=== PATIENT | female | born 1985 | race Caucasian/White ===

== ENCOUNTER 2016-12-10 08:26 | Emergency (ER) | payer BC ==
[~2016-12-10] VITALS: Ht 167.6 cm; Wt 66.8 kg
[~2016-12-10 08:26] MED LIST: BIRTH CONTROL PO; ONDA4TAB8 PO
[2016-12-10] MEDS ORDERED: ONDANSETRON 2 MG/ML (Z0FRAN) 2 ML VIAL IV ONE (08:45)
[2016-12-10 08:57] LABS: MEAN CORPUSCULAR HGB CONC 35.3 g/dL (31.0-37.0); MEAN CORPUSCULAR VOLUME 91 FL (80-100); MEAN PLATELET VOLUME 10.6 FL (6.0-9.5); PLATELET COUNT 158 10^3uL (150-450); WHITE BLOOD COUNT 9.24 10^3uL (4.0-11.0)
[2016-12-10 09:07] LABS: ALBUMIN 4.5 g/dL (3.4-5.0); ANION GAP 16.6 MEQ/L (3-15); CALCULATED IONIZED CALCIUM 4.1 mg/dL (3.8-4.6); TOTAL PROTEIN 7.5 g/dL (6.4-8.5)
[2016-12-10 09:12] LABS: MEAN CORPUSCULAR HEMOGLOBIN 32.3 PG (26.0-34.0)
[2016-12-10 09:23] LABS: BAND NEUTROPHILS % 1 % (0-6); EOSINOPHILS % 0 % (0-4); LYMPHOCYTES # 0.4 #; MONOCYTES # 0.2 #; MONOCYTES % 2 % (3-11); SEGMENTED NEUTROPHILS % 93 % (51-67); TOTAL CELLS COUNTED 100
[2016-12-10 09:24] LABS: RBC MORPH NORMAL (NORMAL)
[2016-12-10] MEDS ORDERED: KETOROLAC 30 MG/ML (TORADOL) 1 ML VIAL IV ONE (10:05)
[2016-12-10 10:15] VITALS: BP 137/76
== END 2016-12-10 10:15 | disposition home or self-care (01) ==
LOC: EDUNIT# 08:26 → ED 08:29
DX: R11.2 Nausea with vomiting, unspecified (principal); R19.7 Diarrhea, unspecified
CPT/HCPCS: 36415; 80053; 83690; 85025; 96361; 96374; 96375; 99284; J1885; J2405; J7030; 99282

== ENCOUNTER → 2017-02-26 | Outpatient (CLI) | payer BC ==
[2017-02-26 19:36] VITALS: BP 115/78
--- NOTE | 2017-02-26 19:36 | Urgent Care T Sheet Gen (E) ---
Intake General Temperature (Fahrenheit): 99.1 Pulse: 72 Blood Pressure Systolic: 115 Blood Pressure Diastolic: 78 Respirations: 18 SPO2: 99 History of Present Illness Initial Comments patient presents with a possible tampon stuck inside her. States she is currently on her period. She doesn't remember if she placed a tampon this AM or if it fell out during the day and she didn't realize it. She is bleeding, not a heavy flow but bleeding, so she is confused on whether or not there is one in place. She is requesting an evaluation to see if one is present or not. No pelvic pain or irritation. Allergies: Coded Allergies: Cefprozil (Unverified Allergy, Mild, Rash, 08/19/14) cefuroxime (Unverified Allergy, Mild, Rash, 08/19/14) sulfamethoxazole (Unverified Allergy, Mild, Rash, 08/19/14) trimethoprim (Unverified Allergy, Mild, Rash, 08/19/14) Home Meds Reported Medications [ Control] No Conflict CheckUnknown Dose PO HS 08/19/14 Respiratory Constitutional Symptoms: No syptoms reported Other possible tampon stuck inside her All Other Systems Reviewed Remaining Systems: All other systems reviewed with negative findings Past Gjtiyiq-Bxnvkh-Ttuwjf Hx Patient's Social History Alcohol Use: Denies Use Smoking Status: Never smoker Recent foreign travel: No Surgeries/Hospitalizations Hospitalization/Surgery Hx: NO SURGERYS Respiratory Respiratory History: None Cardiovascular Cardiovascular History: None Gastrointestinal GI/Endocrine History: GERD Diabetes Diabetes: No HEENT Impaired Vision: None Hearing Impaired: None Psychosocial Behavior Disorders: None Physical Exam Physical Exam General Appearance: WD/WN No apparent distress Comment Speculum pelvic exam reveals bleeding however I see no tampon or foreign object. Manual pelvic exam also reveals no foreign object. Her cervix was palpated and wasn't tender. No generalized tenderness within the pelvic region. Departure Urgent Care Impression Impression: Primary Impression: Menstrual pain Departure Disposition: 01 HOME OR SELF-CARE Condition: Stable Referrals: LAURA VERONICA MD (PCP) Additional Instructions: Reassured the patient that I see nor feel any tampon inside her. If she starts to notice pelvic pain, worsening bleeding, purulent drainage, fever, etc, she is to present immediately to the ER. patient understands DC instructions. All questions were answered. End of report . TAMMY WHITEHEAD Feb 26, 2017 19:36
== END ==
LOC: MHUC 19:02
PROVIDERS: ATTEND Physician Assistant
DX: N94.6 Dysmenorrhea, unspecified (principal)
CPT/HCPCS: 99213

== ENCOUNTER 2017-04-03 18:53 | Emergency (ER) | payer BC ==
[~2017-04-03] VITALS: Ht 165.1 cm; Wt 57.7 kg
--- OUTSIDE RECORDS SUMMARY | 2017-04-03 18:58 | XMS REPORT | Continuity of Care Document ---
Author Author [email or web address] Organization [facility] Address Unknown Phone Unavailable Allergies Active Description Code Type Severity Reaction Onset Reported/Identified Relationship to Patient Clinical Status Yes cefprozil [id number] Drug Allergy Mild Rash 08/19/2014 Yes cefuroxime [id number] Drug Allergy Mild Rash 08/19/2014 Yes sulfamethoxazole [id number] Drug Allergy Mild Rash 08/19/2014 Yes trimethoprim [id number] Drug Allergy Mild Rash 08/19/2014 Medications Problems Date Dx Coded Attending Type Code Diagnosis Diagnosed By 08/20/2014 AYESHA AGUILERA, WALT Clement Ot 787.03 VOMITING ALONE 05/22/2015 BREANNE VILLATORO MD, LAURA Meza Ot 719.45 12/10/2016 BREANNE VILLATORO MD, LAURA Meza Ot 719.45 JOINT PAIN-PELVIS 12/10/2016 ROSE MONREAL MD Ot R11.2 NAUSEA WITH VOMITING, UNSPECIFIED 12/10/2016 ROSE MONREAL MD Ot R19.7 DIARRHEA, UNSPECIFIED 12/13/2016 ROSE MONREAL MD Ot R11.2 NAUSEA WITH VOMITING, UNSPECIFIED 12/13/2016 ROSE MONREAL MD Ot R19.7 DIARRHEA, UNSPECIFIED 02/28/2017 TAMMY ANGELA Ot N94.6 DYSMENORRHEA, UNSPECIFIED 03/12/2017 TAMMY ANGELA Ot N94.6 DYSMENORRHEA, UNSPECIFIED Procedures Results Test Result Range Comprehensive metabolic panel - 12/10/16 08:50 Sodium measurement 99 70-110 CARBON DIOXIDE 24 22-29 Serum or plasma anion gap 16.6 3-15 BLOOD UREA NITROGEN 10 7-18 CREATININE SERUM 0.75 0.6-1.2 Brucella species antibody panel (IgG, IgM) 13 10-20 Estimated glomerular filtration rate (GFR) 109.1 Estimated glomerular filtration rate (GFR) non- 90.1 OSMOLALITY,CALCULATED 266 280-300 CALCIUM 9.6 8.8-10.8 Calculated ionized calcium measurement 4.1 3.8-4.6 BILIRUBIN,TOTAL 1.4 0.1-1.0 Serum or plasma alkaline phosphatase measurement 94 38-126 ASPARTATE AMINO TRANSFERASE 23 15-37 ALANINE AMINOTRANSFERASE 35 30-65 Serum or plasma total protein measurement 7.5 6.4-8.5 Serum or plasma albumin measurement 4.5 3.4-5.0 Serum or plasma albumin/globulin mass ratio 1.500 1.1-1.8 Lipase measurement - 12/10/16 08:50 Lipase measurement 65 23-300 Complete blood count (CBC) with automated white blood cell (WBC) differential - 12/10/16 08:50 Blood automated leukocyte count 9.24 4.0 -11.0 Erythrocytes 4.55 4.00-5.00 12.0-16.0;g/dL 14.7 12.0-15.5 Hematocrit 41.60 35.00-45.00 Automated erythrocyte mean corpuscular volume 91 80-100 Mean corpuscular hemoglobin (MCH) determination 32.3 26.0-34.0 Automated erythrocyte mean corpuscular hemoglobin concentration measurement ( mass/volume) 35.3 31.0-37.0 Erythrocyte distribution width 11.5 11.8 -15.6 Automated blood platelet count 158 150- 450 Automated blood platelet mean volume measurement 10.6 6.0-9.5 Complete blood count, platelets with manual differential - 12/10/16 08:50 Total cell count 100 Blood segmented neutrophils percentage 93 51-67 Blood band neutrophil count as percentage of total leukocytes 1 0-6 LYMPHOCYTES % 4 20-46 Automated monocyte percentage 2 3-11 Eosinophil count auto 0 0-4 Basophils 0 0-2 Manual blood metamyelocytes/100 leukocytes 0 0-1 NEUTROPHILS(SEG) 8.6 NEUTROPHILS # BANDS 0.1 Blood lymphocytes manual count (number/volume) 0.4 Automated blood monocyte count 0.2 Blood absolute eosinophil count 0.0 Basophils 0.0 Erythrocyte morphology assessment NORMAL NORMAL Encounters ACCT No. Visit Date/Time Discharge Status Pt. Type Provider Facility Loc./Unit Complaint [id number] 11/04/2014 18:24:55 11/04/2014 23: 59:59 CLS Outpatient Steve Silva [id number] 05/02/2014 14:55:55 05/02/2014 23: 59:59 CLS Outpatient Danie Mustafa [id number] 03/01/2014 15:30:18 03/01/2014 23: 59:59 CLS Outpatient Danie Mustafa [id number] 02/10/2014 10:04:25 02/10/2014 23: 59:59 CLS Outpatient Danie Mustafa [id number] 02/03/2014 15:23:08 02/03/2014 23: 59:59 CLS Outpatient Matt Garcia [id number] 09/06/2013 09:18:05 09/06/2013 23: 59:59 CLS Outpatient Danie Mustafa [id number] 07/20/2013 17:03:01 07/20/2013 23: 59:59 CLS Outpatient Danie Mustafa
--- OUTSIDE RECORDS SUMMARY | 2017-04-03 18:58 | XMS REPORT | Continuity of Care Document ---
Author Author [facility] Organization [facility] Address Unknown Phone Unavailable Allergies Active Description Code Type Severity Reaction Onset Reported/Identified Relationship to Patient Clinical Status Yes cefprozil [id number] Drug Allergy Mild Rash 08/19/2014 Yes cefuroxime [id number] Drug Allergy Mild Rash 08/19/2014 Yes sulfamethoxazole [id number] Drug Allergy Mild Rash 08/19/2014 Yes trimethoprim [id number] Drug Allergy Mild Rash 08/19/2014 Medications Problems [...] Status Pt. Type Provider Facility Loc./Unit Complaint [id number] 11/04/2014 18:24:55 11/04/2014 23: 59:59 CLS Outpatient Steve Silva [id number] 05/02/2014 14:55:55 05/02/2014 23: 59:59 CLS Outpatient Danie Mustafa [id number] 03/01/2014 15:30:18 03/01/2014 23: 59:59 CLS Outpatient Danie Mustafa [id number] 02/10/2014 10:04:25 02/10/2014 23: 59:59 CLS Outpatient Danie Mustafa [id number] 02/03/2014 15:23:08 02/03/2014 23: 59:59 CLS Outpatient Matt Garcia [id number] 09/06/2013 09:18:05 09/06/2013 23: 59:59 CLS Outpatient Danie Mustafa [id number] 07/20/2013 17:03:01 07/20/2013 23: 59:59 CLS Outpatient Danie Mustafa
[2017-04-03] MEDS ORDERED: PROMETHAZINE HCL INJ 25 MG in SODIUM CHLORIDE 25 ML IV ONE (19:10)
[2017-04-03] MEDS ORDERED: SODIUM CHLORIDE FLUSH 3 ML SYR IV ONE (19:10)
[2017-04-03] MEDS ORDERED: SODIUM CHLORIDE FLUSH 10 ML SYR IV PRN (19:10)
[2017-04-03 19:34] LABS: MEAN CORPUSCULAR VOLUME 93 FL (80-100); MEAN PLATELET VOLUME 10.5 FL (6.0-9.5); PLATELET COUNT 195 10^3uL (150-450); WHITE BLOOD COUNT 17.88 10^3uL (4.0-11.0)
[2017-04-03 19:41] LABS: MEAN CORPUSCULAR HEMOGLOBIN 33.2 PG (26.0-34.0); MEAN CORPUSCULAR HGB CONC 35.6 g/dL (31.0-37.0)
[2017-04-03 19:42] LABS: BAND NEUTROPHILS % 6 % (0-6); EOSINOPHILS % 0 % (0-4); LYMPHOCYTES # 0.9 #; MONOCYTES # 0.7 #; MONOCYTES % 4 % (3-11); RBC MORPH NORMAL (NORMAL); SEGMENTED NEUTROPHILS % 85 % (51-67); TOTAL CELLS COUNTED 100
[2017-04-03] MEDS ORDERED: LORazepam 2 MG/ML (ATIVAN) 1 ML VIAL ONE (19:43)
[2017-04-03 19:45] LABS: ALBUMIN 4.9 g/dL (3.4-5.0); TOTAL PROTEIN 8.3 g/dL (6.4-8.5)
[2017-04-03] MEDS ORDERED: LORazepam 2 MG/ML (ATIVAN) 1 ML VIAL IV ONE (19:45)
[2017-04-03] MEDS ORDERED: TRIAMCINOLONE CREAM (19:46)
[2017-04-03] MEDS ORDERED: NORG1TAB14 PO (19:46)
[2017-04-03 20:48] LABS: BILIRUBIN,URINE Negative (Negative); CLARITY,URINE Clear; COLOR,URINE Yellow; GLUCOSE, URINE (UA) Negative (Negative); HCG,QUALITATIVE URINE Negative (Negative); LEUKOCYTE ESTERASE, URINE Negative (Negative); PH,URINE 8.5 (5.0 - 8.0)
[2017-04-03] MEDS ORDERED: PROM25SU44 RC (20:58)
[2017-04-03 20:59] LABS: URINE CENTRIFUGED VOLUME 12 mL
[2017-04-03 21:03] LABS: RBC,URINE 0-2 /HPF
[2017-04-03 21:15] VITALS: BP 96/59
== END 2017-04-03 21:07 | disposition home or self-care (01) ==
LOC: ED 18:54
DX: K59.00 Constipation, unspecified (principal)
CPT/HCPCS: 36415; 80053; 81003; 81015; 81025; 83690; 85025; 96361; 96365; 96375; 99283; J2060; J2550; J7030; 85007